=== PATIENT | female | born 1940 | race Caucasian/White ===

== ENCOUNTER 2017-12-02 16:18 | Emergency (ER) | payer OTHER ==
[~2017-12-02] VITALS: Ht 160 cm; Wt 66.0 kg
[~2017-12-02 16:18] MED LIST: ACET-1138 PO; ASPI81TA28 PO; CALC600T9 PO; DPKSR250 PO; LPT40 PO; LXP10 PO; MECL1TAB40 PO; MULT-506 PO
[2017-12-02 16:30] VITALS: TEMP 36.8; Ht 160 cm; Wt 66.0 kg
[2017-12-02] MEDS ORDERED: SOAP SUDS ENEMA PR STA (19:27)
[2017-12-02] MEDS ORDERED: MAGNESIUM CITRATE 296 ML/BTL PO STA (19:27)
--- NOTE | 2017-12-02 19:27 | EMERGENCY ROOM VISIT NOTE ---
History Report prepared by [place]: Kashmir Wilkes Under the Supervision of: Dr. Tristan Davis M.D. First contact with patient: 19:19 Chief Complaint: CONSTIPATION Stated Complaint: IMPACTED STOOL SIZE OF BASEBALL Nursing Triage Summary: pt was at adult day care today and staff there told pt daughter that pt is impacted with large ammount of stool and has a rectal prolapse. pt daughter reports normal BMs at home this week including yesterday History of Present Illness The patient is a 77 year old female who presents to the Emergency Room with complaints of persistent constipation starting earlier today. The patient's family states that the patient was at [employer], and the employees told the family that the patient was on the toilet for an hour, and she has a stool impaction the size of a baseball and an anal prolapse. They told the patient to come to the ED for evaluation. The patient has a history of Alzheimer's and dementia. Source of History: family Onset: earlier today Position: other (global) Quality: other (constipation) Timing: other (persistent) Note: Associated symptoms: Anal prolapse Review of Systems See HPI for pertinent positives & negatives. A total of 10 systems reviewed and were otherwise negative. Past Medical & Surgical Medical Problems: (1) Depression (2) Hx of skin malignancy (3) Hyperlipidemia (4) Mixed Alzheimer's and vascular dementia Surgical Problems: (1) S/P appendectomy (2) S/P colonoscopy with polypectomy (3) S/P partial colectomy (4) S/P removal of ovarian cyst Family History Cardiac disorder MOTHER FH: CAD (coronary artery disease) FATHER ( of [place] in 70s ) Stroke MOTHER (? CVA) Social History Smoking Status: Never Smoker Alcohol Use: none Drug Use: none Housing Status: lives with family Current/Historical Medications Scheduled Aspirin (Aspirin Ec), 81 MG PO DAILY Atorvastatin (Lipitor), 40 MG PO DAILY Calcium Carbonate-Vitamin D (Calcium + D), 1 TAB PO BID Divalproex Sodium (Divalproex Sodium ER), 250 MG PO DAILY Docusate Sodium (Colace), 1 CAP PO BID Escitalopram Oxalate (Escitalopram Oxalate), 20 MG PO DAILY Multivitamin (Multivitamin), 1 TAB PO DAILY Senna (Senokot), 1 TAB PO HS Scheduled PRN Acetaminophen (Tylenol Extra Strength), 1 TAB PO Q4H PRN for Pain Meclizine Hcl (Meclizine Hcl), 12.5 MG PO Q8 PRN for Dizziness or Vertigo Allergies Coded Allergies: No Known Allergies (Verified , 07/13/16) Physical Exam Vital Signs Date Time Temp Pulse Resp B/P (MAP) Pulse Ox O2 Delivery O2 Flow Rate FiO2 12/02/17 22:21 66 20 124/82 96 12/02/17 20:20 64 20 121/64 98 Room Air 12/02/17 16:30 36.8 61 16 126/77 96 Physical Exam GENERAL: Patient is a healthy-appearing well-nourished female HEAD: Normocephalic atraumatic EYES: Ocular movements intact pupils equal and react to light OROPHARYNX mucous membranes are moist no exudates present no erythema or edema present NECK: Supple no nuchal rigidity CHEST: Good equal expansion LUNGS: Clear and equal to auscultation CARDIAC: Normal S1 and S2 ABDOMEN: Soft nontender no guarding BACK: No CVA tenderness RECTAL: There is no rectal prolapse. One hemorrhoid is present. Moderate amount of stool in the rectal vault. EXTREMITIES: No pain upon palpation normal muscle strength in all groups no clubbing cyanosis or edema NEURO: Patient is following commands and answering questions appropriately. Alert and oriented x3 Cranial Nerves 2-12 grossly intact Medical Decision & Procedures ER Provider Diagnostic Interpretation: Radiology results as stated below per my review and radiologist interpretation: KUB CLINICAL HISTORY: Pt c/o stool impaction pain COMPARISON STUDY: 01/13/2009 FINDINGS: Nonobstructive bowel pattern. Several bowel anastomotic lines through the pelvis and left mid abdomen. Increased fecal load throughout the colon. No evidence for a focal impaction. No significant small bowel distention. IMPRESSION: Increased fecal load throughout the colon consistent with fecal stasis. The above report was generated using voice recognition software. It may contain grammatical, syntax or spelling errors. Electronically signed by: Gilles Sanchez M.D. 12/02/2017 8:06 PM Dictated Date/Time: 12/02/2017 8:05 PM Medications Administered Medications (Trade) Dose Ordered Sig/Selin Route Start Time Stop Time Status Last Admin Dose Admin Magnesium Citrate (Citrate Of Magnesia Soln) 150 ml NOW STAT PO 12/02/17 19:27 12/02/17 19:29 DC 12/02/17 20:10 150 ML Miscellaneous (Soap Suds Enema) 1 ea NOW STAT [place] 12/02/17 19:27 12/02/17 19:29 DC 12/02/17 20:55 1 EA Procedure The patient was disimpacted by me. Patient tolerated the procedure well. ED Course 1918: Past medical records reviewed. The patient was evaluated in room B4. A complete history and physical examination was performed. I disimpacted a small amount of stool. 1926: Soap Suds Enema NJ, Magnesium Citrate 150ml PO 2133: The patient was disimpacted. I discussed results and treatment plan with the patient and her family. They verbalize agreement and understanding. The patient is ready for discharge. Medical Decision Differential diagnosis: Etiologies such as appendicitis, diverticulitis, PUD, biliary pathology, UTI, pancreatitis, obstruction, mesenteric ischemia, aortic pathology, infections, inflammatory bowel disease, renal colic, as well as others were entertained. This is a 77-year-old female that presents emergency department complaining of stool impaction the patient was disimpacted by myself. In addition she received magnesium citrate in the emergency department. Serial abdominal examinations were performed on the patient in the emergency department and at no time did the patient exhibited a surgical abdomen. In addition the patient was also given numerous enemas in the emergency department which resulted in the patient having a bowel movement. I believe the patient as well as to be discharged home for follow-up with her primary care physician. Family will finish the magnesium citrate at home in the morning. Medication Reconcilliation Current Medication List: was personally reviewed by me Blood Pressure Screening Patient's blood pressure: Normal blood pressure Impression Primary Impression: Fecal impaction Scribe Attestation The scribe's documentation has been prepared under my direction and personally reviewed by me in its entirety. I confirm that the note above accurately reflects all work, treatment, procedures, and medical decision making performed by me. Departure Information Dispostion Home / Self-Care Prescriptions Senna (Senokot) 8.6 Mg Tab 1 TAB PO HS for 30 Days, #30 TAB Prov: Tristan Davis MD 12/02/17 Docusate Sodium (COLACE) 100 Mg Cap 1 CAP PO BID for 30 Days, #60 CAP Prov: Tristan Davis MD 2/9/18 Referrals Billie Hernandez M.D. (PCP) Forms HOME CARE DOCUMENTATION FORM, IMPORTANT VISIT INFORMATION, School Instructions, Work Instructions Patient Instructions ED Constipation, ED Impaction Fecal Treated, My [facility] Additional Instructions Finish Mag Citrate bottle in Morning Add stool softners to diet Follow up with DR Hernandez's office You were found to have an elevated blood pressure today (>120 sytolic or >90 diastolic). Per medicare guidelines, you need to follow up with this blood pressure screening with your Primary Care Physician (PCP). For a new PCP call [phone]. You have been examined and treated today on an emergency basis only. This is not a substitute for, or an effort to provide, complete comprehensive medical care. It is impossible to recognize and treat all injuries or illnesses in a single emergency department visit. It is therefore important that you follow up closely with Dr Hernandez. Call as soon as possible for an appointment. Thank you for your time and consideration. I look forward to speaking with you again soon. Please don't hesitate to call us if you have any questions.
--- NOTE | 2017-12-02 20:07 | DIAGNOSTIC IMAGING REPORT ---
KUB CLINICAL HISTORY: Pt c/o stool impaction pain COMPARISON STUDY: 01/13/2009 FINDINGS: Nonobstructive bowel pattern. Several bowel anastomotic lines through the pelvis and left mid abdomen. Increased fecal load throughout the colon. No evidence for a focal impaction. No significant small bowel distention. IMPRESSION: Increased fecal load throughout the colon consistent with fecal stasis. The above report was generated using voice recognition software. It may contain grammatical, syntax or spelling errors. Electronically signed by: Gilles Sanchez M.D. 12/02/2017 8:06 PM Dictated Date/Time: 12/02/2017 8:05 PM
[2017-12-02] MEDS ORDERED: SENN-61 PO (21:39)
[2017-12-02] MEDS ORDERED: DOCU-94 PO (21:39)
[2017-12-02 22:21] VITALS: BP 124/82; PULSE 66; O2SAT 96
== END 2017-12-02 22:10 | disposition home or self-care (01) ==
LOC: C.EDB 16:21
DX: K56.41 Fecal impaction (principal); K64.9 Unspecified hemorrhoids; G30.9 Alzheimer's disease, unspecified; F02.80 Dementia in other diseases classified elsewhere, unspecified severity, without behavioral disturbance, psychotic disturbance, mood disturbance, and anxiety; E78.5 Hyperlipidemia, unspecified; Z79.82 Long term (current) use of aspirin; Z82.49 Family history of ischemic heart disease and other diseases of the circulatory system; Z82.3 Family history of stroke